=== PATIENT | female | born 1950 | race Caucasian/White ===

== ENCOUNTER 2024-08-12 09:06 | Day surgery (SDC) | payer MEDICARE, MEDICAID ==
[~2024-08-12] VITALS: Ht 152.4 cm; Wt 69.2 kg
[~2024-08-12 09:06] MED LIST: LR 1,000 ML IV SCH
[2024-08-12] MEDS ORDERED: COZAAR 50MG50 MG/TAB PO (10:26)
[2024-08-12] MEDS ORDERED: HCTZ12.5TAB PO (10:27)
[2024-08-12] MEDS ORDERED: K-DUR 10 MEQ T10 MEQ PO (10:28)
[2024-08-12] MEDS ORDERED: PRIL40 PO (10:28)
[2024-08-12] MEDS ORDERED: GLUCOPHAGE500 MG/TAB PO (10:29)
[2024-08-12] MEDS ORDERED: MEVACOR10 MG PO (10:29)
[2024-08-12] MEDS ORDERED: BUPivacaine PF 0.5% w EPI (1:200,000) 10 ML VIAL SQ ONE (10:30)
[2024-08-12] MEDS ORDERED: Lidocaine PF 2% (20 MG/ML) 10 ML POLY AMP IJ ONE (10:30)
[2024-08-12] MEDS ORDERED: FISH OIL1000 MG PO (10:30)
[2024-08-12 11:05] VITALS: BP 162/85; PULSE 94; TEMP 97.8
[2024-08-12] MEDS ORDERED: fentaNYL 50 MCG/ML 2 ML VIAL ONE (11:07)
[2024-08-12] MEDS ORDERED: NS 10 ML IV ONE (11:07)
[2024-08-12] MEDS ORDERED: Lidocaine PF 2% (20 MG/ML) 5 ML VIAL ONE (11:07)
[2024-08-12] MEDS ORDERED: Ondansetron 4 MG/2 ML VIAL ONE (11:07)
[2024-08-12] MEDS ORDERED: Morphine 2 MG/1 ML VIAL [PACU/SDC ONLY] IV PRN (12:00)
[2024-08-12] MEDS ORDERED: Ondansetron 4 MG/2 ML VIAL IV PRN ×2 (12:00→12:30)
[2024-08-12 12:25] VITALS: BP 102/56; PULSE 88; TEMP 97.1
[2024-08-12] MEDS ORDERED: Morphine 4 MG/ML VIAL IV PRN (12:30)
[2024-08-12] MEDS ORDERED: Acetaminophen 500 MG TAB PO PRN (12:30)
[2024-08-12 12:40] VITALS: BP 123/86; PULSE 86
--- NOTE | 2024-08-12 12:46 | NUR ---
Pt to [facility] [place] [facility] from OR at 1225 via cart. Report received from NNEKA Menard and Wilner [employer]. VSS. Son at bedside. IV fluids infusing through Left wrist 20G IV, without complications. Crackers, jello, and grape juice given per request. Son is translating per pt request, consent on chart. Bandaid and medipore dressing are CDI. Pt reports no pain at this time.
[2024-08-12 12:55] VITALS: BP 133/69; PULSE 80
--- NOTE | 2024-08-12 12:56 | NUR ---
Discharge instructions and education reviewed with patient and son. Questions answered. Pt would like to rest for 15 more minutes and then get dressed. Call light within reach.
[2024-08-12 13:10] VITALS: PULSE 78
--- NOTE | 2024-08-12 13:22 | NUR ---
Pt dressed with assistance of this nurse. Denies pain or nausea. IV out at 1320. Pt discharges to sons car via w/c at that time, accompanied by Swapna. Son has no questions at time of discharge.
== END 2024-08-12 13:20 | disposition home or self-care (01) ==
LOC: SDCO 09:06
DX: Z45.2 Encounter for adjustment and management of vascular access device (principal); C51.9 Malignant neoplasm of vulva, unspecified; K21.9 Gastro-esophageal reflux disease without esophagitis; Z79.899 Other long term (current) drug therapy
CPT/HCPCS: C1788; J0690; J2405; J2704; J3010; J7120